=== PATIENT | male | born 1980 | race Caucasian/White ===

== ENCOUNTER 2024-08-17 09:56 | Emergency (ER) | payer OTHER, SELFPAY ==
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
[2024-08-17 10:39] VITALS: BP 162/104; PULSE 88; RESP 18; TEMP 36.8; O2SAT 99; BMI 28.8
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
[2024-08-17 11:21] LABS: MANUAL DIFF FLAG NO
[2024-08-17 11:23] LABS: Basophils Absolute Auto 0.1 X10*3/uL (0.0-0.2); Basophils Percent Auto 0.9 % (0-2); Eosinophils Absolute Auto 0.4 X10*3/uL (0.0-0.4); Eosinophils Percent Auto 4.2 % (0-4); Hematocrit 43.3 % (42.0-52.0); Hemoglobin 15.4 g/dl (14.0-18.0); Imm Gran Abs Auto 0.21 X10*3/uL (0.00-0.03); Imm Gran Pct Auto 2.2 % (0.0-0.4); Lymphocytes Absolute Auto 2.9 X10*3/uL (1.2-4.9); Mean Corpuscular HGB Conc 35.6 g/dl (31.0-36.0); Mean Corpuscular Hemoglobin 30.7 pg (27.0-33.0); Mean Corpuscular Volume 86.3 fL (80.0-98.0); Mean Platelet Volume 8.9 fL (9.4-12.4); Monocytes Absolute Auto 0.6 X10*3/uL (0.1-1.2); Neutrophils Absolute Auto 5.4 x10*3/uL (2.0-8.3); Neutrophils Percent Auto 56.7 % (45-73); Platelet Count 359 X10*3/uL (160-400); Red Blood Count 5.02 X10*6/uL (4.60-5.80); Red Cell Distribution Width 14.3 % (11.0-16.0); White Blood Count 9.6 X10*3/uL (4.8-10.8)
[2024-08-17 11:41] LABS: Anion Gap 13 (12-20); Blood Urea Nitrogen 11 mg/dL (9-16); Calcium 9.2 mg/dL (8.4-10.2); Carbon Dioxide 21 mmol/L (22-29); Chloride 109 mmol/L (96-108); Creatinine Clr Calc Pharmacy 139.8; Estimated Glomerular Filt Rate > 60; Glucose Random 113 mg/dL (60-115); Potassium 4.1 mmol/L (3.3-5.1); Sodium 139 mmol/L (135-145)
[2024-08-17] MEDS: Lidocaine 4 % Patch ADH..PATCH 1 PATCH TRANSDERMA (12:51)
[2024-08-17] MEDS: Acetaminophen 325 MG TABLET 975 MG PO (12:51)
[2024-08-17 12:58] VITALS: BP 162/104; PULSE 88; RESP 18; TEMP 36.8; O2SAT 99
== END 2024-08-17 13:00 | disposition home or self-care (01) ==
PROVIDERS: Physician Assistant Medical; Emergency Provider Student in an Organized Health Care Education/Training Program
DX: S22.32XA Fracture of one rib, left side, initial encounter for closed fracture (principal); V49.59XA Passenger injured in collision with other motor vehicles in traffic accident, initial encounter; Y93.89 Activity, other specified; Y92.9 Unspecified place or not applicable; Y99.9 Unspecified external cause status
CPT/HCPCS: 36415; 71250; 80048; 85025; 94010; 99283; 99284

== ENCOUNTER → 2024-08-17 10:44 | Outpatient (BNV) | payer SELFPAY | PROVIDERS: Emergency Provider Student in an Organized Health Care Education/Training Program; Visit Provider Radiology Diagnostic Radiology | DX: R07.89 Other chest pain (principal) | CPT/HCPCS: 71250 ==

== ENCOUNTER 2024-10-27 09:00 | Outpatient (RCR) | payer OTHER, SELFPAY | END 2024-10-27 09:54 | disposition home or self-care (01) | LOC: HO.PTCHIC 09:00 | PROVIDERS: PCP Internal Medicine; Visit Provider Physician Assistant Surgical | DX: S83.91XA Sprain of unspecified site of right knee, initial encounter (principal) | CPT/HCPCS: 97110; 97161 ==

== ENCOUNTER 2025-02-09 07:00 | Outpatient (RCR) | payer OTHER, SELFPAY | END 2025-03-19 11:12 | disposition home or self-care (01) | LOC: HO.PTCHIC 07:00 | PROVIDERS: PCP Internal Medicine; Visit Provider Orthopaedic Surgery | DX: S13.4XXD Sprain of ligaments of cervical spine, subsequent encounter (principal) | CPT/HCPCS: 97110; 97140; 97161 ==